=== PATIENT | female | born 1990 | race Caucasian/White ===

== ENCOUNTER 2020-08-07 11:41 | Day surgery (SDC) | payer BC ==
--- NOTE | 2020-08-07 13:15 | RAD ---
EXAM: 4 views of the right knee HISTORY: Knee pain COMPARISON: None FINDINGS: No knee effusion is seen. There is no evidence of acute fracture or dislocation. No signifi cant degenerative changes are seen. No soft tissue swelling is present. IMPRESSION: No evidence of acute osseous abnormality.
[2020-08-07] MEDS ORDERED: Acetaminophen 500 MG TAB ONE (13:23)
[2020-08-07 13:32] LABS: Bilirubin Negative (Negative); Blood, Urine Negative (Negative); Clarity Clear (Clear); Glucose, Urine (Dipstick) Normal (Negative); Ketone, Urine Trace mg/dL (Negative); Leukocyte Negative Leu/uL (Negative); Nitrite Negative (Negative); Protein, Urine (Dipstick) Negative (Neg-Trace); Urobilinogen Normal mg/dL (Less than 2)
[2020-08-07] MEDS ORDERED: Bacitracin 1 PK ONE (13:53)
[2020-08-07 14:25] VITALS: BMI 25.3
[2020-08-07] MEDS ORDERED: hydrALAZINE 20 MG/ML VIAL SLOW IVP PRN (15:51)
--- NOTE | 2020-08-08 01:58 | SS ---
DATE OF ADMISSION: 08/07/2020 DATE OF DISCHARGE: 08/07/2020 REGULAR PHYSICIAN: Carlos Johnston MD. EVALUATING PHYSICIAN: Mauricio Chester MD. CHIEF COMPLAINT: Status post fall at home. HISTORY OF PRESENT ILLNESS: Ms. Ellison is a 30-year-old white -0-0-1 with an estimated date of confinement on 11/15/2019, who presents to the hospital complaining of tripping at home at approximately 10 a.m. She states that she caught herself on all fours and did not strike her abdomen. Since that time, she denies ruptured membranes, vaginal bleeding, or abdominal pain. Her care has been with Dr. Johnston and she has been followed with a history of hypertension. PAST OBSTETRICAL HISTORY: Includes x1. PAST MEDICAL HISTORY: Hypertension and kidney stones. PAST SURGICAL HISTORY: Removal of kidney stone, section as above and an injury to her eye. CURRENT MEDICATIONS: 1. Aldomet 500 mg b.i.d. 2. Procardia XL 60 mg daily. 3. PNV ALLERGIES: ASPIRIN, WHICH SHE SAYS GIVES HER THROAT TIGHTENING AND SHORTNESS OF BREATH. SOCIAL HISTORY: Denies tobacco, alcohol, or drug use. FAMILY HISTORY: Unremarkable. REVIEW OF SYSTEMS: Denies nausea, vomiting, fever, chills, ruptured membranes, vaginal bleeding or decreased movement. PHYSICAL EXAMINATION: In Labor and Delivery, her vital signs are stable. BPs are 120-130/70-80. She is afebrile. In general, she is pleasant and in no acute distress. ABDOMEN: Soft, nontender, and gravid. heart rate tracing is stable. There are no decelerations. No uterine contractions are seen. In excess of an hour, the patient was monitored and the heart tones remained reassuring. There were no decelerations. There were no uterine contractions noted. ASSESSMENT: 1. A 25 and 7th week intrauterine . 2. Status post fall at home, but with no abdominal contact. PLAN: The patient was reassured in Labor and delivery today. She was given labor precautions and told to return should she notice any cramping, contractions or vaginal bleeding. She voiced understanding of her discharge instructions and will follow up for her next scheduled visit with Dr. Johnston. Job ID: [id number] [facility]
== END 2020-08-07 16:05 | disposition home health service (06) ==
LOC: ERS 11:41 → L&D/OP 14:17
PROVIDERS: ATTEND Obstetrics & Gynecology
DX: O99.891 Other specified diseases and conditions complicating pregnancy (principal); M25.561 Pain in right knee; Z3A.25 25 weeks gestation of pregnancy; Z79.899 Other long term (current) drug therapy; Z88.6 Allergy status to analgesic agent; W01.0XXA Fall on same level from slipping, tripping and stumbling without subsequent striking against object, initial encounter; Y92.009 Unspecified place in unspecified non-institutional (private) residence as the place of occurrence of the external cause
CPT/HCPCS: 81003; 99283

== ENCOUNTER 2020-10-22 13:35 | Inpatient (IN) | payer BC ==
[2020-10-22 14:17] VITALS: BMI 25.4
[2020-10-22] MEDS ORDERED: Famotidine/PF 20 mg/2ml Vial SLOW IVP PRN (14:35)
[2020-10-22] MEDS ORDERED: hydrALAZINE 20 MG/ML VIAL ONE (14:35)
[2020-10-22] MEDS ORDERED: Ondansetron PF 4 MG/2 ML Vial IVP PRN ×2 (14:35→19:48)
[2020-10-22] MEDS ORDERED: Bicitra 30 ML UDCUP PO PRN (14:35)
[2020-10-22] MEDS ORDERED: Promethazine HCl 25 MG/ML VIAL IM PRN ×2 (14:35→19:48)
[2020-10-22] MEDS ORDERED: hydrALAZINE 20 MG/ML VIAL SLOW IVP PRN ×3 (14:35→14:38)
[2020-10-22] MEDS ORDERED: Labetalol HCl 100 MG/20 ML VIAL SLOW IVP PRN (14:40)
[2020-10-22] MEDS ORDERED: CEFAZOLIN 2 GM in Premix Bag 1 BAG IVPB SCH (14:45)
--- NOTE | 2020-10-22 16:09 | ULT ---
US Biophysical Profile: 10/22/2020 2:41 PM CLINICAL HISTORY: Preeclampsia. COMPARISON: None. FINDINGS: heart rate: 140 bpm. JIGNESH: 10.0 cm Biophysical profile: 6 of 8. A 0 was given for breathing. IMPRESSION: Biophysical profile of 6 of 8.
[2020-10-22 16:15] LABS: Hemoglobin 12.3 g/dL (12.0-16.0); Mean Corpuscular HGB CONC 32.4 g/dL (32.0-36.0); Mean Corpuscular Volume 89.4 fL (78.0-98.0); Mean Platelet Volume 8.3 fL (7.4-10.4); Platelet Count 146 thou/uL (130-400); RBC Distribution Width 12.5 % (11.5-14.5); Red Blood Cell (RBC) Count 4.23 mill/uL (4.20-5.40); White Blood Cell (WBC) Count 13.5 thou/uL (4.8-10.8)
[2020-10-22 16:44] LABS: ALT (SGPT) 9 U/L (8-55); AST (SGOT) 13 U/L (5-34); Albumin 3.4 g/dL (3.5-5.0); Alkaline Phosphatase 105 U/L (40-110); Anion Gap 16 mmol/L (10-20); BUN (Urea Nitrogen) Less than 4 mg/dL (7.0-18.7); Bilirubin, Total 0.4 mg/dL (0.2-1.2); Calc. Creatinine Clearance 154 mL/min (70-130); Calcium 8.4 mg/dL (7.8-10.44); Carbon Dioxide 16 mmol/L (22-29); Chloride 109 mmol/L (98-107); Globulin 3.1 g/dL (2.4-3.5); Glucose 65 mg/dL (70-105); Potassium 3.3 mmol/L (3.5-5.1); Protein, Total 6.5 g/dL (6.0-8.3); Sodium 138 mmol/L (136-145)
[2020-10-22 16:47] LABS: Creatinine, Urine 117.51 mg/dL (47-110)
[2020-10-22 16:53] LABS: HBSAg Index 0.15 S/CO (0-0.99); Hep B Surf Ag Non-Reactive S/CO (NonReactive)
[2020-10-22] MEDS ORDERED: Labetalol HCl 100 MG/20 ML VIAL ONE (17:00)
[2020-10-22 17:01] LABS: Syphilis Antibody Nonreactive (Nonreactive); Syphilis Antibody Index 0.04 S/CO (<1.00 Non-Reactive)
[2020-10-22] MEDS ORDERED: PHENYLEPHRINE-NS 100 MCG/ML 10 ML SYRINGE ONE (19:07)
[2020-10-22] MEDS ORDERED: Dexamethasone 4 mg/ml Vial ONE (19:07)
[2020-10-22] MEDS ORDERED: Morphine PF 10 MG/10 ML VIAL ONE (19:07)
[2020-10-22] MEDS ORDERED: ePHEDrine 50 MG/ML VIAL ONE (19:07)
[2020-10-22] MEDS ORDERED: Ondansetron PF 4 MG/2 ML Vial ONE (19:07)
[2020-10-22] MEDS ORDERED: Ketorolac Tromethamine 30 MG/ML VIAL ONE (19:07)
[2020-10-22] MEDS ORDERED: Oxytocin 10 UNITS/ML VIAL ONE ×2 (19:13→20:12)
[2020-10-22] MEDS: Lactated Ringer's 1,000 ML IV SCH (19:17)
[2020-10-22] MEDS ORDERED: Ondansetron HCl/PF 4 MG/2 ML Vial IVP PRN (19:48)
[2020-10-22] MEDS ORDERED: Meperidine HCl/PF 25 MG/ML VIAL SLOW IVP PRN (19:48)
[2020-10-22] MEDS ORDERED: Naloxone HCl 0.4 mg/ml Vial IV PRN (19:48)
[2020-10-22] MEDS ORDERED: L&D-Morphine 4 MG/ML VIAL SLOW IVP PRN (19:48)
[2020-10-22] MEDS ORDERED: HYDROmorphone 2 MG/ML VIAL SLOW IVP PRN (19:48)
[2020-10-22] MEDS ORDERED: diphenhydrAMINE 50 MG/ML VIAL IVP PRN (19:48)
[2020-10-22] MEDS ORDERED: Naloxone HCl 0.4 mg/ml Vial IVP PRN ×2 (19:48)
[2020-10-22] MEDS ORDERED: Promethazine HCl 25 MG SUPP PR PRN (19:48)
[2020-10-22] MEDS ORDERED: Ketorolac Tromethamine 30 MG/ML VIAL IVP SCH (20:00)
[2020-10-22] MEDS ORDERED: Communication Order-Pharmacy FS SCH (20:00)
[2020-10-22] MEDS ORDERED: Fentanyl 100 MCG/2 ML VIAL ONE ×3 (20:01→20:32)
--- NOTE | 2020-10-22 20:59 | PDOC.LDHP ---
Labor and Delivery H&P HPI: 30 y/o y/o at 36 and 4/7 weeks with severe range BPs at home and on L&D today. Patient with a hx of very difficult to treat chronic HTN. No evidence of preeclampsia on blood work, but patient is reporting a moderate headache all day, before coming in and still persistent after BP was aggressively treated. Current gestational age (weeks): 36 Due date: 11/15/20 Grav: 3 Para: 2 Current complications: gestational diabetes, hypertension Abnormal US findings: No Current medications: pre- vitamins Previous surgical history: low tranverse CS Allergies/Adverse Reactions: Allergies Allergy/AdvReac Type Severity Reaction Status Date / Time aspirin Allergy Severe Anaphylaxis Verified 08/07/20 14:25 - Physical Exam Vital signs reviewed and normal: yes General: NAD, resting Heart: RRR Lungs: CTAB Abdomen: gravid Extremeties: no edema FHT: category 1 - Assessment Chronic Hypertension with superimposed worsening severe range blood pressures and persistent headache. This may represent the new onset of atypical early superimposed preeclampsia. Patient treated with multiple doses of BP meds on L&D. Repeat planned FOSTER. We will try to hold magnesium until after delivery - but will start it if her symptoms worsen or fail to improve as hoped post .
[2020-10-22] MEDS ORDERED: NIFEdipine XL 60 MG TAB PO SCH (21:45)
[2020-10-22] MEDS ORDERED: Meperidine HCl/PF 25 MG/ML VIAL ONE (22:27)
[2020-10-22] MEDS ORDERED: Promethazine HCl 25 MG/ML VIAL ONE (22:36)
[2020-10-23] MEDS: Lactated Ringer's 1,000 ML IV SCH (00:04)
[2020-10-23] MEDS ORDERED: Sodium Chloride 0.9% 10 ML ONE (00:46)
[2020-10-23 02:10] LABS: SARS-CoV-2 MS2 Positive; SARS-CoV-2 N Gene Negative; SARS-CoV-2 S Gene Negative; SARS-CoV-2 by NAA Not Detected (NotDetected); SARS-CoV-2 orf1ab Negative
[2020-10-23] MEDS: Ketorolac Tromethamine 30 MG/ML VIAL IVP PRN ×2 (02:13→08:23)
[2020-10-23] MEDS: NIFEdipine XL 60 MG TAB PO SCH (08:24)
[2020-10-23] MEDS ORDERED: Varicella virus, LIVE 0.5 ML VIAL SC ONE (09:13)
[2020-10-23] MEDS ORDERED: hydrALAZINE 20 MG/ML VIAL SLOW IVP PRN (09:13)
[2020-10-23] MEDS ORDERED: Bisacodyl 10 MG SUPP PR PRN (09:13)
[2020-10-23] MEDS ORDERED: Measles/Mumps/Rubella 10 MCG/0.5 ML VIAL SC ONE (09:13)
[2020-10-23] MEDS ORDERED: Adacel (T-DAP) 0.5 ML SYRINGE IM ONE (09:13)
[2020-10-23] MEDS ORDERED: Zolpidem Tartrate 5 MG TAB PO PRN (09:13)
[2020-10-23] MEDS ORDERED: diphenhydrAMINE 25 MG CAP PO PRN (09:13)
[2020-10-23] MEDS ORDERED: Promethazine HCl 25 MG/ML VIAL IM PRN (09:13)
[2020-10-23] MEDS ORDERED: Ondansetron PF 4 MG/2 ML Vial IVP PRN (09:13)
[2020-10-23] MEDS: HYDROcodone/Acetaminophen 5/325 mg Tablet PO PRN ×3 (11:38→20:37)
[2020-10-23] MEDS ORDERED: FLU VACC QS2020-21(6MOS UP)/PF 60 MCG/0.5 ML SYRINGE IM ONE (12:15)
[2020-10-23 13:51] LABS: SARS-CoV-2 IgG Ab Non-Reactive (NonReactive); SARS-CoV-2 IgG Index 0.03 S/CO (< 1.40)
[2020-10-23] MEDS: Ibuprofen 800 MG TAB PO SCH ×2 (14:25→22:27)
[2020-10-23] MEDS: Simethicone Chewable 80 MG TAB PO PRN ×2 (14:31→22:32)
--- NOTE | 2020-10-23 20:05 | PDOC.PP ---
Post Progress Note Post Day #: 1 PO intake tolerated: yes Flatus: yes Ambulation: yes Vital Signs (12 hours) Temp Pulse Resp BP Pulse Ox 10/23/20 15:50 98.6 F 110 H 16 126/74 96 10/23/20 12:08 98.6 F 117 H 20 131/74 98 10/23/20 08:28 113 H 10/23/20 08:24 118 H 10/23/20 08:20 98 Weight Weight 135 lb - Physical Examination General: NAD Cardiovascular: no m/r/g, RRR Respiratory: clear to auscultation bilaterally, non-labored breathing Abdominal: + bowel sounds, lochia, no distention Extremities: negative homans (B) Skin: CS incision dry & intact, no rash Neurological: no gross focal deficits Psychiatric: A&Ox3, normal affect Result Diagrams: 10/23/20 13:07 10/22/20 15:44 Additional Labs: Post Labs Hep Bs Antigen Non-Reactive S/CO (NonReactive) 10/22/20 15:44 Blood Type O POSITIVE 10/22/20 17:22
[2020-10-23] MEDS: Docusate Calcium (SURFAK) 240 MG CAP PO SCH (22:26)
[2020-10-24] MEDS: HYDROcodone/Acetaminophen 5/325 mg Tablet PO PRN ×4 (05:10→18:09)
[2020-10-24] MEDS: Ibuprofen 800 MG TAB PO SCH ×2 (05:10→13:25)
[2020-10-24] MEDS ORDERED: Prenatal Vitamin 1 TAB PO SCH (09:00)
[2020-10-24] MEDS: Docusate Calcium (SURFAK) 240 MG CAP PO SCH (09:51)
[2020-10-24] MEDS: NIFEdipine XL 60 MG TAB PO SCH (09:51)
[2020-10-24 12:09] VITALS: BP 137/85; TEMP 98.3
[2020-10-24] MEDS: Simethicone Chewable 80 MG TAB PO PRN (14:06)
[2020-10-24] MEDS ORDERED: Adacel (T-DAP) 0.5 ML SYRINGE IM ONE (17:00)
[2020-10-24] MEDS ORDERED: Boostrix 0.5 ML (Tdap) VIAL IM ONE (17:15)
--- NOTE | 2020-10-24 19:57 | PDOC.PP ---
Post Progress Note Post Day #: 2 PO intake tolerated: yes Flatus: yes Ambulation: yes Vital Signs (12 hours) Temp Pulse Resp BP Pulse Ox 10/24/20 12:09 98.3 F 113 H 20 137/85 98 10/24/20 09:51 92 10/24/20 08:20 98 10/24/20 08:02 98.4 F 92 20 136/74 98 Weight Weight 135 lb - Physical Examination General: NAD Cardiovascular: no m/r/g, RRR Respiratory: clear to auscultation bilaterally, non-labored breathing Abdominal: + bowel sounds, lochia, no distention, appropriately TTP Extremities: negative homans (B) Skin: CS incision dry & intact, no rash Neurological: no gross focal deficits Psychiatric: A&Ox3, normal affect (Will DC to home.) Result Diagrams: 10/23/20 13:07 10/22/20 15:44 Additional Labs: Post Labs Hep Bs Antigen Non-Reactive S/CO (NonReactive) 10/22/20 15:44 Blood Type O POSITIVE 10/22/20 17:22
--- NOTE | 2020-10-24 19:58 | OP ---
DATE OF PROCEDURE: 10/22/2020 TIME SEEN: 1953 hours Central Standard Time. PREOPERATIVE DIAGNOSIS: Intrauterine at 36 weeks and 4 days with severe range blood pressures noted multiple times on Labor and Delivery, which appears consistent with chronic hypertension with an acute exacerbation versus an acute onset of atypical severe preeclampsia superimposed on chronic hypertension. PROCEDURE PERFORMED: Repeat low-transverse section. FINDINGS: Viable male , weighing 3380 g or 7 pounds 7 ounces, Apgars 8 and 9. QUANTITATIVE BLOOD LOSS: 385 mL. COMPLICATIONS: None. DETAILS OF THE PROCEDURE: The patient was consented and taken back to the operating room where spinal anesthesia was found to be adequate. She was then prepped and draped in the normal sterile fashion. A timeout was performed by the entire operative team. The incision was then marked with a marking pen tested using sharp pickups. An incision was then made with a scalpel. The incision was carried through the adipose tissue down to the underlying rectus fascia using both sharp dissection as well as cautery. Once the fascia was identified, it was incised in the midline and then the fascial incision was carried through in both lateral directions using sharp as well as cautery dissection techniques. Next, the superior aspect of the rectus fascia was grasped with 2 Janna clamps, which was tented up and the rectus muscles were dissected off using blunt dissection as well as cautery dissection. Similarly, the inferior aspect of the fascial incision was grasped with 2 Janna clamps, tented up and the rectus muscles were dissected off bluntly as well as sharply. Next, the rectus muscles were in the midline and the peritoneum identified. The peritoneum was then carefully grasped with 2 hemostats and entered sharply. The peritoneal incision was extended superiorly and inferiorly and bladder blade was placed in the lower abdomen. At this point, the uterus was identified and the bladder flap was then developed using pickups with teeth as well as Metzenbaum scissors in both lateral directions. The bladder flap was then dissected downwards using the mobile equipment operator's finger as well as Metzenbaum scissors. The bladder blade was replaced. The lower uterine segment was then identified and entered sharply using a clean scalpel. The uterine incision was then dissected downwards until thin layer of muscle remained and this was entered bluntly using a hemostat to avoid any injury to the baby. The uterine incision was then stretched using two fingers in both lateral directions. An amniotomy was performed artificially using a hemostat and the baby was delivered using fundal pressure in a gentle fashion. Once out, the baby's mouth and nose were bulb suctioned, cord clamped and cut, and the baby was handed to waiting attendants. Next, the uterus was exteriorized, cleared of all clots and debris and the uterine incision was repaired with #1 Monocryl in a running locking fashion. A 2nd suture of the same type was used to obtain complete hemostasis at the uterine incision. The bladder flap was reapproximated using 3-0 Monocryl. Next, patient's left and right adnexa were inspected and appeared to be within normal limits. The posterior cul-de-sac was blotted dry and hemostasis assured. One more look at the uterine incision demonstrated hemostasis. Next, the uterus was replaced back within the abdomen. The peritoneum was reapproximated using 2-0 Monocryl without difficulty. The rectus muscles were then allowed to come back together and 0 chromic was used to aid in reapproximation of the muscle as necessary. The rectus fascia was then reapproximated in a running fashion using 0 Vicryl suture. The adipose tissue was then examined and appeared to be well approximated without any obvious separations. Finally, the skin was reapproximated with 3-0 Monocryl on a [place] needle without difficulty and Dermabond adhesive was applied to the skin. Once the glue was dry, the drapes were removed and the patient was transferred to an ambulatory bed where she was taken to recovery awake and in stable condition. Sponge, lap, and needle counts were correct x3. Job ID: [id number]
== END 2020-10-24 19:43 | disposition home or self-care (01) | DRG 788 ==
LOC: L&D/OP 13:35 → L&D-LIB 20:42 → 3SW 23:48
PROVIDERS: ADMIT Obstetrics & Gynecology; ATTEND Obstetrics & Gynecology
PROC: 10D00Z1 Extraction of Products of Conception, Low, Open Approach (ICD-10-PCS; principal; 2020-10-22)
DX: O34.211 Maternal care for low transverse scar from previous cesarean delivery (principal); O11.4 Pre-existing hypertension with pre-eclampsia, complicating childbirth; Z20.828 Contact with and (suspected) exposure to other viral communicable diseases; O24.429 Gestational diabetes mellitus in childbirth, unspecified control; Z3A.36 36 weeks gestation of pregnancy; Z37.0 Single live birth; Z88.8 Allergy status to other drugs, medicaments and biological substances
CPT/HCPCS: 36415; 51702; 76819; 80053; 82570; 84156; 85014; 85018; 85027; 86769; 86780; 86850; 86900; 86901; 87340; 87635; 90715; 99285; J0360; J0690; J1100; J1170; J1885; J2175; J2270; J2405; J2550; J3010; J3490; U0003